=== PATIENT | female | born 1970 | race Caucasian/White ===

== ENCOUNTER 2022-03-03 17:50 | Emergency (ER) | payer OTHER, SELFPAY ==
--- NOTE | 2022-03-03 17:59 | ED.URI ---
HPI - URI/Sore Throat General Stated Complaint: Ear Pain/Body Aches Time Seen by Provider: 03/03/22 18:20 Source: patient and RN notes reviewed Mode of arrival: ambulatory Limitations: no limitations History of Present Illness HPI Narrative: 51-year-old female presents with concern for 3-day history of right ear pain. She also reports body aches, slight cough, slight sore throat. She reports she has a history of problems with her ear and has had tube in the ear before. She reports muffled hearing. She reports pain is mild. She denies drainage from the ear. She reports she occasionally takes Flonase, has not taken any recently. She denies other [id number] intervention. She denies known sick contacts MD elicited complaint: other (Ear pain, body aches) Review of Systems Review of Systems: CONSTITUTIONAL: Reports malaise. Denies chills, sweats, or fever. EYES: Denies visual changes, redness, or discharge. ENT: Reports mild rhinorrhea, otalgia and sore throat. CARDIOVASCULAR: Denies chest pain, palpitations, or edema. RESPIRATORY: Reports cough. Denies dyspnea. GASTROINTESTINAL: Denies abdominal pain, nausea, vomiting, diarrhea SKIN: Denies rash or itching. MUSCULOSKELETAL: Reports myalgia. NEUROLOGIC: Denies headache. All systems reviewed & are unremarkable except as noted in HPI and below PMFSH Comments At time of signature, agree with nursing past medical, surgical, social and family history. There is no relevant family history pertinent to the presenting complaint Exam Narrative: GENERAL: Well-appearing, well-nourished, and in no acute distress. HEAD: Normocephalic EYES: PERRLA, conjunctivae clear ENT: Nares clear, clear discharge. Mucous membranes moist. TM pearly dos santos with dull light reflex on the right, sharp on the left; no tragal tenderness. Oropharynx mildly erythematous without lesions. Tonsils not enlarged and without exudate, no drooling, no hoarseness, no trismus, uvula midline. NECK: Supple. No lymphadenopathy CHEST: Clear to auscultation, breath sounds equal. No wheezing, rhonchi, rales, or stridor. No respiratory distress, speaks in full sentences. HEART: Regular rate and rhythm. No murmur heard. SKIN: Warm, dry, no rash. NEURO: Alert and oriented x3. PSYCH: Normal mood and affect Course Course Emergency Course: Patient is aware of diagnosis, understands and agrees to treatment plan. Anticipatory guidance given. Patient agrees to follow-up as directed and is aware of reasons to seek care at the emergency department. Portions of this record may have been created with voice recognition software Level of Care: Express Care Visit Vital Signs Vital signs: Reviewed. MDM - URI/Sore Throat MDM Narrative Medical decision making narrative: Differential diagnosis considered: [place] virus, strep pharyngitis, allergic rhinitis, upper respiratory tract infection, sinusitis, rhinosinusitis, nasopharyngitis. viral pharyngitis, otitis media, otitis externa, pneumonia, bronchitis, viral cough syndrome, viral syndrome, and influenza. Exam findings show no acute concerns or changes; patient is non-toxic appearing and is in no distress. Patient is appropriate for outpatient treatment and follow-up. Lab Data Attestation: I reviewed the patient's lab results. Critical Care Time Critical Care Time Critical Care Time: No Discharge Plan Discharge Clinical Impression: Upper respiratory infection Patient Disposition: Home, Self-Care Condition: Stable Instructions: Upper Respiratory Infection (ED) Additional Instructions: Your rapid flu and COVID test are negative Your rapid strep swab was negative today at [facility]. A throat culture will be sent to the laboratory for further testing. If the test is positive, you will receive a phone call within 48 hours and an appropriate antibiotic will be initiated at that time. Your symptoms are likely due to a viral illness, which is not treated with antibiotics.
[2022-03-03 18:14] VITALS: BP 144/75; PULSE 67; RESP 20; TEMP 36.4; O2SAT 99
== END 2022-03-03 19:07 | disposition home or self-care (01) ==
PROVIDERS: Emergency Provider Nurse Practitioner
DX: J06.9 Acute upper respiratory infection, unspecified (principal); Z20.822 Contact with and (suspected) exposure to COVID-19; E78.00 Pure hypercholesterolemia, unspecified; I10 Essential (primary) hypertension; K21.9 Gastro-esophageal reflux disease without esophagitis; E11.9 Type 2 diabetes mellitus without complications
CPT/HCPCS: 87081; 87426; 87804; 87880; 99213; C9803; G0463

== ENCOUNTER 2023-08-11 13:07 | Emergency (ER) | payer OTHER, SELFPAY ==
[2023-08-11 13:15] VITALS: BP 147/85; PULSE 65; RESP 16; TEMP 36.7; O2SAT 100
--- NOTE | 2023-08-11 13:28 | ED.EAR ---
HPI - Ear Problem General Chief complaint: Ear Stated complaint: Right Ear Pain Time Seen by Provider: 08/11/23 13:28 Source: patient, RN notes reviewed and old records reviewed Mode of arrival: ambulatory Limitations: no limitations History of Present Illness HPI Narrative: 52-year-old female presents to the [facility] with complaints of right ear pain and drainage that started Tuesday night. History ear infections and a tube in the ear. Has been taking Tylenol and using warm compresses Treatment prior to arrival: other (Tylenol) Related Data Home Medications Medication Instructions Recorded Confirmed atorvastatin 40 mg tablet 40 mg PO DAILY 08/11/23 08/11/23 famotidine 20 mg tablet 20 mg PO DAILY 08/11/23 08/11/23 lisinopril 10 mg tablet 10 mg PO DAILY 08/11/23 08/11/23 Allergies Allergy/AdvReac Type Severity Reaction Status Date / Time Penicillins Allergy Rash Verified 08/11/23 13:16 prednisone Allergy Unknown Verified 08/11/23 13:16 Sulfa (Sulfonamide Allergy Unknown Verified 08/11/23 13:16 Antibiotics) Review of Systems Review of Systems: All systems reviewed & are unremarkable except as noted in HPI and below Constitutional: Constitutional: Reports no additional constitutional complaints Eyes: Eyes: Reports no additional eye complaints ENT: Reports as per HPI and Reports otalgia (Right) Cardiovascular: Cardiovascular: Reports no additional cardiovascular complaints, Denies chest pain and Denies dyspnea Respiratory: Respiratory: Reports no additional respiratory complaints, Denies chest congestion, Denies cough and Denies dyspnea Gastrointestinal: Gastrointestinal: Reports no additional gastrointestinal complaints, Denies abdominal pain, Denies nausea and Denies vomiting Musculoskeletal: Musculoskeletal: Reports no additional musculoskeletal complaints Integumentary/Breasts: Skin/Breast: Reports system reviewed and no additional complaints, except as docu Neurologic: Reports system reviewed and no additional complaints, except as documented Psychiatric: Psychiatric: Reports no additional psychiatric complaints Allergic/Immunologic: Allergic/Immunologic: Reports no additional allergic/immunologic complaints PMFSH Surgical History Surgical History (Updated 08/11/23 @ 19:21 by Regina Lebron APRN) History of placement of ear tubes Right ear Comments At the time of my signature, I reviewed and agree with the nursing past medical, surgical, social, and family history. There is no relevant family history pertinent to the patient complaint. Exam Const: General: cooperative, healthy appearing, comfortable, no acute distress, well developed, alert and well nourished Nutritional Appearance: well nourished Orientation/consciousness: patient oriented x3 Limitations: no limitations HENMT: Head: normal to inspection Ears: hearing grossly normal bilaterally, external ears normal, EAC's normal and TM abnormal erythematous on the right and with myringotomy tube present on the right Face/Nose/Sinus: Normal external nose present, Normal nares present, Normal nasal mucous membranes and turbinates present, normal facial exam and face symmetric Face and sinus: normal facial exam and face symmetric Mouth: Yes Normal oral and palatal mucosa present, Yes lip normal, Yes tongue normal and Yes moist mucous membranes Throat: posterior oropharynx normal, uvula midline and no uvular edema Eyes: General: appearance normal, both eyes and all related structures Alignment and Position: alignment normal Periorbital: periorbital findings normal Pupils: Equal, round and reactive pupils present EOM: EOMs intact bilaterally Neck: Neck: normal visual inspection, full ROM, no lymphadenopathy and no meningeal signs Chest: Chest palpation & inspection: normal inspection of the chest Resp: Effort & Inspection: normal respiratory effort and able to speak in complete sentences Auscultation: clear to auscultation bilaterall
== END 2023-08-11 13:51 | disposition home or self-care (01) ==
PROVIDERS: Emergency Provider Nurse Practitioner
DX: H66.91 Otitis media, unspecified, right ear (principal); Z79.899 Other long term (current) drug therapy
CPT/HCPCS: 99213; G0463

== ENCOUNTER 2023-09-06 15:50 | Emergency (ER) | payer OTHER, SELFPAY ==
[2023-09-06 16:16] VITALS: BP 142/60; PULSE 60; RESP 16; TEMP 37.3; O2SAT 100
--- NOTE | 2023-09-06 16:36 | ED.EAR ---
HPI - Ear Problem General Chief complaint: Dental/Oral Stated complaint: right side tooth pain Time Seen by Provider: 09/06/23 16:30 Source: patient Mode of arrival: ambulatory Limitations: no limitations History of Present Illness HPI Narrative: Kely is a 52 year old female patient presenting to the clinic today with c/o right ear pain/dental pain x2 days. She denies any known fever chills. Does have history of tubes in the right ear with recurrent ear infections. Also reporting that she is having some slight dental pain to the right lower tooth Related Data Home Medications Medication Instructions Recorded Confirmed atorvastatin 40 mg tablet 40 mg PO DAILY 08/11/23 09/06/23 famotidine 20 mg tablet 20 mg PO DAILY 08/11/23 09/06/23 lisinopril 10 mg tablet 10 mg PO DAILY 08/11/23 09/06/23 cetirizine 10 mg tablet 10 mg PO DAILY 09/06/23 09/06/23 fluticasone propionate 50 See Rx Instructions .Route .COMPLEX 09/06/23 09/06/23 mcg/actuation nasal spray,suspension Allergies Allergy/AdvReac Type Severity Reaction Status Date / Time Penicillins Allergy Intermediate Rash Verified 09/06/23 16:12 prednisone Allergy Unknown Verified 09/06/23 16:12 Sulfa (Sulfonamide Allergy Unknown Verified 09/06/23 16:12 Antibiotics) Review of Systems Review of Systems: Pertinent positives per HPI. Patient denies any fever, chills, rash, headache, visual changes, dizziness, cough, runny nose, sore throat, shortness of breath, chest pain, palpitations, nausea, vomiting, diarrhea, constipation, abdominal pain, or any urinary issues. PMFSH Surgical History Surgical History History of placement of ear tubes Right ear Comments At the time of my signature, I reviewed and agree with the nursing past medical, surgical, social, and family history. There is no relevant family history pertinent to the patient complaint. Exam Narrative: General: Well-developed, well nourished, in no apparent distress Head: Normocephalic, atraumatic Eyes: Pupils equally round and reactive to light bilaterally, EOM intact, sclera and conjunctive clear, no discharge, lids normal Ears: Left tMs intact and clear, right TM intact, bulging, red, tube intact in the right TM ear canals clear, no drainage, grossly hearing normal. Nose: Nares patent, no discharge, no inflammation, no sinus tenderness. Mouth: Oropharynx without lesions or masses, poor dentition, MMM. Neck: Supple, trachea midline, no enlargement of anterior or posterior cervical nodes, no thyroid masses or goiter palpable. Cardio: Regular rate and rhythm, s1 and s2 normal, no murmur appreciated. Resp: Clear to auscultation bilaterally anteriorly and posteriorly, no rhonchi, rales, wheezing or rubs Course Course Emergency Course: Portions of this record may have been created with voice recognition software. Level of Care: Express Care Visit Vital Signs Vital signs: Vital Signs Temperature 37.3 C 09/06/23 16:16 Pulse Rate 60 09/06/23 16:16 Respiratory Rate 16 09/06/23 16:16 Blood Pressure 142/60 H 09/06/23 16:16 Pulse Oximetry 100 09/06/23 16:16 Oxygen Delivery Room Air 09/06/23 16:16 Temperature 37.3 C 09/06/23 16:16 Pulse Rate 60 09/06/23 16:16 Respiratory Rate 16 09/06/23 16:16 Blood Pressure 142/60 H 09/06/23 16:16 Pulse Oximetry 100 09/06/23 16:16 Oxygen Delivery Room Air 09/06/23 16:16 Vital signs reviewed Medical Decision Making MDM Narrative Medical decision making narrative: At the time of visit patient is resting comfortably on the exam table. Patient appears to be nontoxic. Plan: I suspect patient has right otitis media. Prescription for doxycycline was sent to the pharmacy. Supportive measures were discussed with the patient and they voiced understanding discharge instructions and agrees to treatment plan. Return precautions reviewed Different
== END 2023-09-06 16:48 | disposition home or self-care (01) ==
PROVIDERS: Emergency Provider Nurse Practitioner Family
DX: H66.91 Otitis media, unspecified, right ear (principal); E78.00 Pure hypercholesterolemia, unspecified; I10 Essential (primary) hypertension; K21.9 Gastro-esophageal reflux disease without esophagitis; E11.9 Type 2 diabetes mellitus without complications
CPT/HCPCS: 99213; G0463

== ENCOUNTER 2023-11-14 16:18 | Emergency (ER) | payer OTHER, SELFPAY ==
[2023-11-14 16:22] VITALS: BP 147/82; PULSE 65; RESP 20; TEMP 36.7; O2SAT 100
[2023-11-14 16:34] VITALS: BP 147/82; PULSE 65; RESP 20; TEMP 36.7; O2SAT 100
--- NOTE | 2023-11-14 16:54 | ED.GENADULT ---
HPI - General Adult General Chief complaint: Skin/Abscess/Foreign Body Stated complaint: rash on back of neck Source: patient Mode of arrival: ambulatory Limitations: no limitations History of Present Illness HPI narrative: Patient presents for evaluation of redness and itching to the hairline of the occipital region of the head for the past three days. No new lotions, soaps, detergents or topical products. Denies any difficulty breathing or swelling. No history of similar symptoms. Related Data Home Medications Medication Instructions Recorded Confirmed atorvastatin 40 mg tablet 40 mg PO DAILY 08/11/23 11/14/23 famotidine 20 mg tablet 20 mg PO DAILY 08/11/23 11/14/23 lisinopril 10 mg tablet 10 mg PO DAILY 08/11/23 11/14/23 cetirizine 10 mg tablet 10 mg PO DAILY 09/06/23 11/14/23 Allergies Allergy/AdvReac Type Severity Reaction Status Date / Time Penicillins Allergy Intermediate Rash Verified 11/14/23 16:36 prednisone Allergy Unknown Verified 11/14/23 16:36 Sulfa (Sulfonamide Allergy Unknown Verified 11/14/23 16:36 Antibiotics) Review of Systems Review of Systems: CONSTITUTIONAL: Denies fever, chills, or sweats. EYES: Denies visual changes, redness, or discharge. ENT: Denies rhinorrhea, congestion, sore throat, or otalgia. CARDIOVASCULAR: Denies chest pain, palpitations, or edema. RESPIRATORY: Denies cough or dyspnea. GASTROINTESTINAL: Denies abdominal pain, nausea, vomiting, or diarrhea. GENITOURINARY: Denies dysuria or hematuria. SKIN: Reports redness and itching to the occipital region of the head MUSCULOSKELETAL: Denies back pain, joint pain, or myalgia. NEUROLOGIC: Denies headache, numbness, dizziness, or weakness. PSYCHIATRIC: Denies anxiety or depression. [facility] Past Medical History Medical History Hyperlipidemia Hypertension Surgical History Surgical History History of placement of ear tubes Right ear Family History Family History Mother Family history non-contributory Social History Social History Smoking packs per day: 0.5 Smoking cigarettes per day: 10.0 Smoking status: Current every day smoker Tobacco type: cigarettes Substance use: never Living arrangements: with family Gender identity (if verbalized by the patient): Female Spiritual care concerns: No Exam Narrative: GENERAL: Well-appearing, well-nourished, and in no acute distress. HEAD: Normocephalic, atraumatic. EYES: PERRLA and EOMI. ENT: Nares clear, no rhinorrhea or epistaxis. Mucous membranes moist. Oropharynx without tonsillar hypertrophy exudate or other lesions. Bilateral TMs pearly dos santos nonbulging NECK: Supple. No adenopathy or masses. No carotid bruits or JVD CHEST: Clear to auscultation. No respiratory distress. No wheezes rales or rhonchi HEART: Regular rate and rhythm. No murmur heard. Normal peripheral pulses. ABDOMEN: Soft, nontender, nondistended, normal active bowel sounds. EXTREMITIES: Normal range of motion. No edema. SKIN: There is a patchy area of erythema without overlying scaling to hairline of the occipital region of the head NEURO: No focal deficits. Alert and oriented x3. PSYCH: Normal mood and affect. Course Course Emergency Course: This is a 52-year-old female who presented for evaluation of itching and redness to the head. Exam is consistent with tinea capitis. Will treat with ketoconazole shampoo. Follow-up with primary provider. Go to the ER for worsening symptoms. Patient in agreement with plan of care Level of Care: Express Care Visit Vital Signs Vital signs: Vital Signs Temperature 36.7 C 11/14/23 16:22 Pulse Rate 65 11/14/23 16:22 Respiratory Rate 20 11/14/23 16:22 Blood Pressure 147/82 H
== END 2023-11-14 16:50 | disposition home or self-care (01) ==
PROVIDERS: Emergency Provider Nurse Practitioner
DX: B35.0 Tinea barbae and tinea capitis (principal); E78.5 Hyperlipidemia, unspecified; I10 Essential (primary) hypertension; F17.210 Nicotine dependence, cigarettes, uncomplicated
CPT/HCPCS: 99213; G0463

== ENCOUNTER 2024-07-01 18:39 | Emergency (ER) | payer OTHER, SELFPAY ==
--- NOTE | 2024-07-01 18:41 | ED_ITS ---
HPI - Ear Problem General Chief complaint: Ear Stated complaint: right ear blood Time Seen by Provider: 07/01/24 18:40 Source: patient Mode of arrival: ambulatory Limitations: no limitations History of Present Illness HPI Narrative: Kely is a 53-year-old female patient presenting to the clinic today with complaints of blood coming from her right ear. She reports she 1st noticed this earlier when she put her finger ear notice blood in the ear canal. States she has been having a lot of pressure in the right ear. History of tubes in the right ear as well as spontaneous ruptures. Denies any nasal congestion but just got over COVID. Related Data Home Medications ?Medication ?Instructions ?Recorded ?Confirmed ?Last Taken ?Type atorvastatin 40 mg tablet 40 mg PO DAILY 08/11/23 07/01/24 Unknown History famotidine 20 mg tablet 20 mg PO DAILY 08/11/23 07/01/24 Unknown History lisinopril 10 mg tablet 10 mg PO DAILY 08/11/23 07/01/24 Unknown History Allergies Allergy/AdvReac Type Severity Reaction Status Date / Time Penicillins Allergy Intermediate Rash Verified 07/01/24 18:42 prednisone Allergy Unknown Verified 07/01/24 18:42 Sulfa (Sulfonamide Allergy Unknown Verified 07/01/24 18:42 Antibiotics) Review of Systems Review of Systems: Pertinent positives per HPI. Patient denies any fever, chills, rash, headache, visual changes, dizziness, cough, shortness of breath, chest pain, palpitations, nausea, vomiting, diarrhea, constipation, abdominal pain, or any urinary issues. PMFSH Past Medical History Medical History Hyperlipidemia Hypertension Surgical History Surgical History History of placement of ear tubes Right ear Family History Family History Mother Family history non-contributory Social History Social History Smoking packs per day: 0.5 Smoking cigarettes per day: 10.0 Smoking status: Current every day smoker Tobacco type: cigarettes Substance use: never Living arrangements: with family Gender identity (if verbalized by the patient): Female Spiritual care concerns: No Comments At the time of my signature, I reviewed and agree with the nursing past medical, surgical, social, and family history. There is no relevant family history pertinent to the patient complaint. Exam Narrative: General: Well-developed, well nourished, in no apparent distress Head: Normocephalic, atraumatic Eyes: Pupils equally round and reactive to light bilaterally, EOM intact, sclera and conjunctive clear, no discharge, lids normal Ears: Left TMs intact and clear, right TM red and ruptured with blood noted in the right ear canal, left ear canal clear-no drainage, grossly hearing normal. Nose: Nares patent, no discharge, no inflammation, no sinus tenderness. Mouth: Oral pharynx without lesions or masses, good dentition, MMM. Neck: Supple, trachea midline, no enlargement of anterior or posterior cervical nodes, no thyroid masses or goiter palpable. Cardio: Regular rate and rhythm, s1 and s2 normal, no murmur appreciated. Resp: Clear to auscultation bilaterally, no rhonchi, rales, wheezing or rubs Course Course Emergency Course: Portions of this record may have been created with voice recognition software. Level of Care: Express Care Visit Vital Signs Vital signs: Vital Signs Temperature 36.6 C 07/01/24 18:48 Pulse Rate 60 07/01/24 18:48 Respiratory Rate 16 07/01/24 18:48 Blood Pressure 141/49 H 07/01/24 18:48 Pulse Oximetry 99 07/01/24 18:48 Oxygen Delivery Room Air 07/01/24 18:48 Temperature 36.6 C 07/01/24 18:48 Pulse Rate 60 07/01/24 18:48 Respiratory Rate 16 07/01/24 18:48 Blood Pressure 141/49 H 07/01/24 18:48 Pulse Oximetry 99 07/01/24 18:48 Oxygen Delivery Room Air 07/01/24 18:48 Vital signs reviewed Medical Decision Making MDM Narrative Medical decision making narrative: At the time of visit patient is resting comfortably on the exam table. Patient appears to be nontoxic. Plan: Patient has a spontaneous rupture of the right tympanic membrane with otitis media. Prescription for azithromycin and ofloxacin ear drops was sent to the pharmacy. Will have patient follow-up with ENT as soon as possible. Supportive measures were discussed with the patient and they voiced understanding discharge instructions and agrees to treatment plan. Return precautions reviewed Differential Diagnosis Differential Diagnosis: Otitis media, otitis sternum eustachian tube dysfunction, cerumen impaction, upper respiratory infection, serous otitis, ruptured ear drum, ear canal trauma Vital Signs Vital Signs: Vital Signs Temperature 36.6 C 07/01/24 18:48 Pulse Rate 60 07/01/24 18:48 Respiratory Rate 16 07/01/24 18:48 Blood Pressure 141/49 H 07/01/24 18:48 Pulse Oximetry 99 07/01/24 18:48 Oxygen Delivery Room Air 07/01/24 18:48 Temperature 36.6 C 07/01/24 18:48 Pulse Rate 60 07/01/24 18:48 Respiratory Rate 16 07/01/24 18:48 Blood Pressure 141/49 H 07/01/24 18:48 Pulse Oximetry 99 07/01/24 18:48 Oxygen Delivery Room Air 07/01/24 18:48 Discharge Plan Discharge Clinical Impression: Otitis media Qualifiers: Otitis media type: suppurative Chronicity: acute Laterality: right Recurrence: non-recurrent Spontaneous tympanic membrane rupture: with spontaneous rupture Qualified Code(s): H66.011 - Acute suppurative otitis media with spontaneous rupture of ear drum, right ear Patient Disposition: Home, Self-Care Condition: Stable Instructions: Antibiotic Form, Ruptured Eardrum (ED), Ear Infection (ED) Additional Instructions: Take any prescribed medications only as directed-azithromycin and ofloxacin Tylenol/motrin as needed for pain May use heating pad to alleviate pain Do not submerge head under water or instill anything in the ears besides the prescribed ear drops Follow up with ENT. Follow up with your PCP in 3-5 days if symptoms persist. Patient Language: Luxembourgish Prescriptions: New azithromycin 250 mg tablet See Rx Instructions .ROUTE .COMPLEX Qty: 6 0RF Rx Instructions: For 250 mg dose pack: take 500 mg today (day 1), then 250 mg for 4 days (days 2-5) ofloxacin 0.3 % drops 5 drp otic (ear) BID 7 Days Qty: 5 0RF No Action atorvastatin 40 mg tablet 40 mg PO DAILY famotidine 20 mg tablet 20 mg PO DAILY lisinopril 10 mg tablet 10 mg PO DAILY Follow-up/Referrals: Ernesto,Asad M., MD [Physician] - PHYSICIAN NOT ON STAFF,NONSTAFF [Primary Care Provider] - Time of Disposition: 18:58 Quality NIHSS Nursing Documentation ED NIHSS nursing documentation: reviewed/agree
[2024-07-01 18:48] VITALS: BP 141/49; PULSE 60; RESP 16; TEMP 36.6; O2SAT 99
== END 2024-07-01 19:03 | disposition home or self-care (01) ==
PROVIDERS: Emergency Provider Nurse Practitioner Family
DX: H66.011 Acute suppurative otitis media with spontaneous rupture of ear drum, right ear (principal); F17.210 Nicotine dependence, cigarettes, uncomplicated; I10 Essential (primary) hypertension; E78.5 Hyperlipidemia, unspecified
CPT/HCPCS: 99213; G0463

== ENCOUNTER 2024-09-08 12:44 | Emergency (ER) | payer OTHER, SELFPAY ==
[2024-09-08 12:52] VITALS: BP 134/78; PULSE 68; RESP 16; TEMP 36.7; O2SAT 99
--- NOTE | 2024-09-08 12:53 | ED.EAR ---
HPI - Ear Problem General Chief complaint: Ear Stated complaint: right ear pain Time Seen by Provider: 09/08/24 13:11 Source: patient, RN notes reviewed and old records reviewed Mode of arrival: ambulatory Limitations: no limitations History of Present Illness HPI Narrative: Patient presents with complaints of right ear pain for 2 days. She reports that she has repeated infections in this ear despite having a tube in this ear. She states that she would like to see a different ENT than the 1 who put the tube in her ear. She denies any injury or trauma. Voices no other concerns or complaints. She has been taking [id number] medication with poor relief. Related Data Home Medications ?Medication ?Instructions ?Recorded ?Confirmed ?Last Taken ?Type atorvastatin 40 mg tablet 40 mg PO DAILY 08/11/23 09/08/24 Unknown History famotidine 20 mg tablet 20 mg PO DAILY 08/11/23 09/08/24 Unknown History lisinopril 10 mg tablet 10 mg PO DAILY 08/11/23 09/08/24 Unknown History fluticasone propionate 50 2 spray intranasal Q12H 09/08/24 09/08/24 Unknown History mcg/actuation nasal spray,suspension ibuprofen 800 mg tablet 800 mg PO Q12H 09/08/24 09/08/24 Unknown History pantoprazole 20 mg tablet,delayed 20 mg PO DAILY 09/08/24 09/08/24 Unknown History release Allergies Allergy/AdvReac Type Severity Reaction Status Date / Time Penicillins Allergy Intermediate Rash Verified 09/08/24 12:52 prednisone Allergy Unknown Verified 09/08/24 12:52 Sulfa (Sulfonamide Allergy Unknown Verified 09/08/24 12:52 Antibiotics) Review of Systems Review of Systems: All systems reviewed & are unremarkable except as noted in HPI and below Constitutional: Constitutional: Reports no additional constitutional complaints ENT: Reports system reviewed and no additional complaints, except as documented and Reports otalgia Cardiovascular: Cardiovascular: Reports no additional cardiovascular complaints Respiratory: Respiratory: Reports no additional respiratory complaints Gastrointestinal: Gastrointestinal: Reports no additional gastrointestinal complaints [facility] Past Medical History Medical History Hyperlipidemia Hypertension Surgical History Surgical History History of placement of ear tubes Right ear Family History Family History Mother Family history non-contributory Social History Social History Smoking packs per day: 0.5 Smoking cigarettes per day: 10.0 Smoking status: Current every day smoker Tobacco type: cigarettes Substance use: never Living arrangements: with family Gender identity (if verbalized by the patient): Female Spiritual care concerns: No Comments At the time of my signature, I reviewed and agree with the nursing past medical, surgical, social, and family history. There is no relevant family history pertinent to the patient complaint. Exam Const: General: cooperative, no acute distress, alert and awake Orientation/consciousness: oriented to person, oriented to place and oriented to time HENMT: Head: normal to inspection Ears: TM abnormal erythematous on the right and with myringotomy tube present on the right Resp: Effort & Inspection: normal respiratory effort and able to speak in complete sentences Auscultation: clear to auscultation bilaterally, no crackles, no rales, no rhonchi and no wheezes Cardio: Palpation: normal PMI Rate: regular rate Rhythm: regular rhythm Heart sounds: S1 normal heart sound present and S2 normal heart sound present Neuro: General: oriented to person, oriented to place and oriented to time Cranial nerves: Yes CN's II-XII intact bilaterally Psych: Appearance: grossly normal Thought process: Normal thought process present Insight: Good insight present (Psych) Judgement: Good judgement present (Psych) Course Course Level of Care: Express Care Visit Vital Signs Vital signs: Vital Signs Temperature 98.1 F 09/08/24 12:52 Pulse Rate 68 09/08/24 12:52 Respiratory Rate 16 09/08/24 12:52 Blood Pressure 134/78 09/08/24 12:52 Pulse Oximetry 99 09/08/24 12:52 Oxygen Delivery Room Air 09/08/24 12:52 Temperature 98.1 F 09/08/24 12:52 Pulse Rate 68 09/08/24 12:52 Respiratory Rate 16 09/08/24 12:52 Blood Pressure 134/78 09/08/24 12:52 Pulse Oximetry 99 09/08/24 12:52 Oxygen Delivery Room Air 09/08/24 12:52 Reviewed Medical Decision Making MDM Narrative Medical decision making narrative: Right ear appears infected, myringotomy tube in place. Patient states that drops alone do not work for her when she gets an ear infection, states that she ?always gets drops and azithromycin? this was ordered for the patient. She is encouraged to follow-up with her primary and her specialist Discharge instructions reviewed with patient, as well as provided in writing per nursing staff. The instructions also include specific and strict return/GO TO THE ER as well as f/u information. All questions have been answered, and the patient deny any further questions with discharge and discharge plan. Some parts of this dictation were generated by voice recognition software and may contain typographical and/or grammatical inaccuracies. Medical Records Medical records reviewed: Yes I reviewed the external patient's medical records. Vital Signs Vital Signs: Vital Signs Temperature 98.1 F 09/08/24 12:52 Pulse Rate 68 09/08/24 12:52 Respiratory Rate 16 09/08/24 12:52 Blood Pressure 134/78 09/08/24 12:52 Pulse Oximetry 99 09/08/24 12:52 Oxygen Delivery Room Air 09/08/24 12:52 Temperature 98.1 F 09/08/24 12:52 Pulse Rate 68 09/08/24 12:52 Respiratory Rate 16 09/08/24 12:52 Blood Pressure 134/78 09/08/24 12:52 Pulse Oximetry 99 09/08/24 12:52 Oxygen Delivery Room Air 09/08/24 12:52 reviewed Lab Data Lab results reviewed: Yes I reviewed the patient's lab results. Lab results narrative: reviewed Discharge Plan Discharge Clinical Impression: Otitis media Qualifiers: Otitis media type: suppurative Chronicity: acute Laterality: right Recurrence: not specified as recurrent Spontaneous tympanic membrane rupture: without spontaneous rupture Qualified Code(s): H66.001 - Acute suppurative otitis media without spontaneous rupture of ear drum, right ear Patient Disposition: Home, Self-Care Condition: Stable Instructions: Antibiotic Form, Earache (ED) Additional Instructions: Take medications as prescribed. Follow with primary care provider. Emergency department for new or worse symptoms Patient Language: Macedonian Prescriptions: New ciprofloxacin-dexamethasone 0.3-0.1 % drops,suspension 4 drp RIGHT EAR Q12H 7 Days Qty: 7.5 0RF azithromycin 250 mg tablet See Rx Instructions .ROUTE .COMPLEX Qty: 6 0RF Rx Instructions: For 250 mg dose pack: take 500 mg today (day 1), then 250 mg for 4 days (days 2-5) No Action atorvastatin 40 mg tablet 40 mg PO DAILY famotidine 20 mg tablet 20 mg PO DAILY lisinopril 10 mg tablet 10 mg PO DAILY fluticasone propionate 50 mcg/actuation spray,suspension 2 spray INTRANASAL Q12H ibuprofen 800 mg tablet 800 mg PO Q12H pantoprazole 20 mg tablet,delayed release (DR/EC) 20 mg PO DAILY Follow-up/Referrals: PHYSICIAN NOT ON STAFF,NONSTAFF [Primary Care Provider] - 3 Days Time of Disposition: 13:19
== END 2024-09-08 13:21 | disposition home or self-care (01) ==
PROVIDERS: Emergency Provider Nurse Practitioner Family
DX: H66.001 Acute suppurative otitis media without spontaneous rupture of ear drum, right ear (principal); I10 Essential (primary) hypertension; E78.5 Hyperlipidemia, unspecified; Z79.1 Long term (current) use of non-steroidal anti-inflammatories (NSAID); Z79.899 Other long term (current) drug therapy; F17.210 Nicotine dependence, cigarettes, uncomplicated
CPT/HCPCS: 99213; G0463

== ENCOUNTER 2024-12-20 17:06 | Emergency (ER) | payer OTHER, SELFPAY ==
--- NOTE | ~2024-12-20 | XR_ITS ---
XR knee LT min 4V Ordering provider: Regina Lebron APRN History: . LT knee pain lateral/anterior 3-4 weeks no trauma or injury . Comparison: None. FINDINGS: BONES: No acute fracture or dislocation. JOINT SPACES: Moderate narrowing of the medial compartment. SOFT TISSUES: Normal. IMPRESSION: No acute osseous abnormality left knee. Moderate osteoarthritic changes. Reviewed, dictated and finalized at location A.
--- NOTE | 2024-12-20 17:11 | ED_ITS ---
HPI - General Adult General Chief complaint: Extremity Injury, Lower Stated complaint: Left Knee/Heel Pain Time Seen by Provider: 12/20/24 17:13 Source: patient, RN notes reviewed and old records reviewed Mode of arrival: ambulatory Limitations: no limitations History of Present Illness HPI narrative: 54-year-old female presents to the [facility] with complaints of left knee pain for approximately 3 weeks. denies any injury. pain anterior portion of the knee. Has full range of motion. Normal gait. No erythema, ecchymosis swelling noted. Also reports left heel pain for approximately 1 week. No known injury to either. HX of a heel spur. reports taking Motrin Related Data Home Medications ?Medication ?Instructions ?Recorded ?Confirmed ?Last Taken ?Type atorvastatin 40 mg tablet 40 mg PO DAILY 08/11/23 12/20/24 Unknown History famotidine 20 mg tablet 20 mg PO DAILY 08/11/23 12/20/24 Unknown History lisinopril 10 mg tablet 10 mg PO DAILY 08/11/23 12/20/24 Unknown History fluticasone propionate 50 2 spray intranasal Q12H 09/08/24 12/20/24 Unknown History mcg/actuation nasal spray,suspension ibuprofen 800 mg tablet 800 mg PO Q12H 09/08/24 12/20/24 Unknown History pantoprazole 20 mg tablet,delayed 20 mg PO DAILY 09/08/24 12/20/24 Unknown History release omeprazole 20 mg capsule,delayed mg 12/20/24 Unknown History release Allergies Allergy/AdvReac Type Severity Reaction Status Date / Time Penicillins Allergy Intermediate Rash Verified 12/20/24 17:13 prednisone Allergy Unknown Verified 12/20/24 17:13 Sulfa (Sulfonamide Allergy Unknown Verified 12/20/24 17:13 Antibiotics) Review of Systems Review of Systems: All systems reviewed & are unremarkable except as noted in HPI and below Constitutional: Constitutional: Reports no additional constitutional complaints Musculoskeletal: Musculoskeletal: Reports as per HPI, Reports arthralgias (Left knee), Denies joint swelling and Reports other (Left heel plantar aspect) Integumentary/Breasts: Skin/Breast: Reports system reviewed and no additional complaints, except as docu PMFSH Past Medical History Medical History Hyperlipidemia Hypertension Surgical History Surgical History History of placement of ear tubes Right ear Family History Family History Mother Family history non-contributory Social History Social History Smoking packs per day: 0.5 Smoking cigarettes per day: 10.0 Smoking status: Current every day smoker Tobacco type: cigarettes Substance use: never Living arrangements: with family Gender identity (if verbalized by the patient): Female Spiritual care concerns: No Comments At the time of my signature, I reviewed and agree with the nursing past medical, surgical, social, and family history. There is no relevant family history pertinent to the patient complaint. Exam Const: General: cooperative, comfortable, no acute distress, well developed, alert and well nourished Nutritional Appearance: well nourished Orientation/consciousness: patient oriented x3 Limitations: no limitations HENMT: Head: normal to inspection Eyes: General: appearance normal, both eyes and all related structures Alignment and Position: alignment normal Neck: Neck: normal visual inspection, full ROM, no lymphadenopathy and no meningeal signs Chest: Chest palpation & inspection: normal inspection of the chest Resp: Effort & Inspection: normal respiratory effort and able to speak in complete sentences Cardio: Rate: regular rate Skin: General skin exam: normal color and no rashes or lesions noted Neuro: General: patient oriented x3, gait normal, moves all extremities and no meningeal signs Cognition (Neuro): normal cognition Speech: normal speech Gait exam (Neuro): Normal gait present Extrem: General: normal to inspection, full ROM, capillary refill normal and normal gait Left lower extremity: knee Details: tenderness and normal ROM; no swelling, normal knee ligament exam, no abrasions, no ecchymosis, no crepitus, no foreign bodies and no deformity, lower leg Details: normal to inspection, ankle Details: normal to inspection and foot Details: normal capillary refill and normal to inspection Psych: Appearance: grossly normal and well kempt Mental Status: mental status grossly normal Speech and movement: Normal speech and movement present and Clear speech present Affect: normal affect Attitude: cooperative Course Course Level of Care: Express Care Visit Vital Signs Vital signs: Vital Signs Temperature 98.4 F 12/20/24 17:13 Pulse Rate 74 12/20/24 17:13 Respiratory Rate 16 12/20/24 17:13 Blood Pressure 147/73 H 12/20/24 17:13 Pulse Oximetry 99 12/20/24 17:13 Oxygen Delivery Room Air 12/20/24 17:13 Temperature 98.4 F 12/20/24 17:13 Pulse Rate 74 12/20/24 17:13 Respiratory Rate 16 12/20/24 17:13 Blood Pressure 147/73 H 12/20/24 17:13 Pulse Oximetry 99 12/20/24 17:13 Oxygen Delivery Room Air 12/20/24 17:13 Reviewed Medical Decision Making MDM Narrative Medical decision making narrative: Patient sitting comfortably in exam room. Nontoxic, vitals stable. Patient in no acute distress Patient presents for left knee, left heel pain. No injury. X-ray showed osteoarthritis of the knee. Patient had a history of a heel spur. Patient appropriate for outpatient treatment with close follow Discharge instructions reviewed with patient, as well as provided in writing per nursing staff. The instructions also include specific and strict return/GO TO THE ER as well as f/u information. All questions have been answered, and the patient deny any further questions with discharge and discharge plan. Some parts of this dictation were generated by voice recognition software and may contain typographical and/or grammatical inaccuracies. Medical Records Medical records reviewed: Yes I reviewed the external patient's medical records. Vital Signs Vital Signs: Vital Signs Temperature 98.4 F 12/20/24 17:13 Pulse Rate 74 12/20/24 17:13 Respiratory Rate 16 12/20/24 17:13 Blood Pressure 147/73 H 12/20/24 17:13 Pulse Oximetry 99 12/20/24 17:13 Oxygen Delivery Room Air 12/20/24 17:13 Temperature 98.4 F 12/20/24 17:13 Pulse Rate 74 12/20/24 17:13 Respiratory Rate 16 12/20/24 17:13 Blood Pressure 147/73 H 12/20/24 17:13 Pulse Oximetry 99 12/20/24 17:13 Oxygen Delivery Room Air 12/20/24 17:13 Reviewed Lab Data Lab results reviewed: Yes I reviewed the patient's lab results. Labs: Reviewed Imaging Data Radiologist's impression: XR knee LT min 4V Ordering provider: Regina Lebron APRN History: . LT knee pain lateral/anterior 3-4 weeks no trauma or injury . Comparison: None. FINDINGS: BONES: No acute fracture or dislocation. JOINT SPACES: Moderate narrowing of the medial compartment. SOFT TISSUES: Normal. IMPRESSION: No acute osseous abnormality left knee. Moderate osteoarthritic changes. Critical Care Time Critical Care Time Critical Care Time: No Discharge Plan Discharge Clinical Impression: Acute pain of left knee Osteoarthritis Qualifiers: Osteoarthritis location: knee Osteoarthritis type: unspecified Laterality: left Qualified Code(s): M17.12 - Unilateral primary osteoarthritis, left knee Heel pain Qualifiers: Laterality: left Qualified Code(s): M79.672 - Pain in left foot Patient Disposition: Home Condition: Stable Instructions: Osteoarthritis (DC), Knee Pain (ED), Heel Spur (ED) Additional Instructions: Your Xray did not show a fracture. Your x-ray shows osteoarthritis Wear good supportive shoes at all times. Ice should be applied to help reduce swelling. It can be used for 20 to 30 minutes, every 2-3 hours while awake. Do not apply ice directly to your skin. You can alternate ibuprofen 600mg and Tylenol 650mg every 4 hours as needed for pain Please schedule a follow-up visit with your personal physician for further evaluation and treatment within 2 weeks especially if symptoms persist. For new or worsening symptoms go directly to the emergency room Patient Language: Greenlandic Prescriptions: No Action atorvastatin 40 mg tablet 40 mg PO DAILY famotidine 20 mg tablet 20 mg PO DAILY lisinopril 10 mg tablet 10 mg PO DAILY fluticasone propionate 50 mcg/actuation spray,suspension 2 spray INTRANASAL Q12H ibuprofen 800 mg tablet 800 mg PO Q12H pantoprazole 20 mg tablet,delayed release (DR/EC) 20 mg PO DAILY omeprazole 20 mg capsule,delayed release(DR/EC) Follow-up/Referrals: Abrahan,KAYLEE Weir [Primary Care Provider] - 1 Week ([facility] follow-up) Stand Alone Forms: Work/School Release IP Time of Disposition: 17:50
[2024-12-20 17:13] VITALS: BP 147/73; PULSE 74; RESP 16; TEMP 36.9; O2SAT 99
== END 2024-12-20 17:54 | disposition home or self-care (01) ==
PROVIDERS: Emergency Provider Nurse Practitioner; PCP Physician Assistant
DX: M25.562 Pain in left knee (principal); M17.12 Unilateral primary osteoarthritis, left knee; M79.672 Pain in left foot; F17.210 Nicotine dependence, cigarettes, uncomplicated; I10 Essential (primary) hypertension; E78.5 Hyperlipidemia, unspecified
CPT/HCPCS: 73564; 99213; G0463